=== PATIENT | female | born 1975 | race Caucasian/White ===

== ENCOUNTER 2021-02-14 16:17 | Emergency (ER) | payer OTHER ==
[2021-02-14 16:26] VITALS: BP 130/92; BMI 20.7
== END 2021-02-14 17:09 | disposition left against medical advice (07) ==
LOC: JERFT 16:17
DX: S61.412A Laceration without foreign body of left hand, initial encounter (principal); W25.XXXA Contact with sharp glass, initial encounter
CPT/HCPCS: 99282-25

== ENCOUNTER 2023-12-16 14:12 | Emergency (ER) | payer SELFPAY ==
[2023-12-16 14:51] VITALS: BP 110/81; PULSE 80; RESP 20; TEMP 99; BMI 22.6
[2023-12-16 15:53] LABS: HEMATOCRIT 31.6 % (32.4-45.2); HEMOGLOBIN 10.8 GM/dL (10.7-15.3); MCH 30.1 pg (25.7-33.7); MCHC 34.1 g/dl (32.0-36.0); MEAN CELL VOLUME 88.3 fl (80-96); MEAN PLT VOLUME 6.7 fl (7.5-11.1); PLATELET COUNT 343 10^3/uL (134-434); RBC 3.58 M/mm3 (3.60-5.2); RDW 12.4 % (11.6-15.6); WHITE BLOOD COUNT 4.9 K/mm3 (4.0-10.0)
[2023-12-16] MEDS ORDERED: predniSONE 20 MG TABLET (UD) ONE (15:57)
[2023-12-16] MEDS ORDERED: diphenhydrAMINE HCL 25 MG CAPSULE (FP) PO ONE (15:57)
[2023-12-16] MEDS: diphenhydrAMINE HCL 50 MG CAPSULE PO ONE (15:59)
[2023-12-16] MEDS: predniSONE 20 MG TABLET (UD) PO ONE (15:59)
[2023-12-16 16:10] LABS: POTASSIUM 3.2 mmol/L (3.5-5.1)
[2023-12-16 16:12] LABS: CALCIUM 9.1 mg/dL (8.5-10.1)
[2023-12-16 16:13] LABS: ALBUMIN 4.2 g/dl (3.4-5.0); BLOOD UREA NITROGEN 11.4 mg/dL (7-18)
[2023-12-16 16:16] LABS: CREATININE 0.8 mg/dL (0.55-1.3)
[2023-12-16 16:17] LABS: BILIRUBIN,TOTAL 0.7 mg/dL (0.2-1); TOT PROT 6.8 g/dl (6.4-8.2)
[2023-12-16] MEDS ORDERED: clonazePAM 0.5 MG TABLET ONE (17:41)
[2023-12-16] MEDS: clonazePAM 0.5 MG TABLET PO ONE (17:45)
[2023-12-16] MEDS ORDERED: GABAPENTIN 300 MG CAPSULE PO ONE (17:57)
== END 2023-12-16 18:02 | disposition home or self-care (01) ==
LOC: JER 14:12
DX: L29.9 Pruritus, unspecified (principal); R09.81 Nasal congestion; R50.9 Fever, unspecified; F41.9 Anxiety disorder, unspecified; Z20.822 Contact with and (suspected) exposure to COVID-19
CPT/HCPCS: 0241U-QW; 36415; 71046-TC-FY; 80053; 85027; 99284-25